=== PATIENT | male | born 1955 | race Caucasian/White ===

== ENCOUNTER 2024-09-21 16:42 | Emergency (ER) | payer MEDICARE, SELFPAY ==
[2024-09-21 16:44] VITALS: BP 118/83; PULSE 62; RESP 24; TEMP 36.8; O2SAT 94
--- NOTE | 2024-09-21 16:47 | EKG_ITS ---
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
[2024-09-21 16:49] VITALS: PULSE 60; RESP 20; O2SAT 98; BMI 26.6
--- NOTE | 2024-09-21 17:05 | XR_ITS ---
Examination: AP chest single view Technique one AP portable upright chest single view Date and time: September 21, 2024 1710 hours INDICATIONS: Shortness of breath and weakness beginning today FINDINGS: Normal heart size Opacity left base and right base consistent with pneumonia No pulmonary edema Prominent osteopenia IMPRESSION: Bibasilar pneumonia
--- NOTE | 2024-09-21 17:07 | PD.EDSOB ---
ED SOB =RME/HPI General Chief Complaint: Shortness of Breath/Dyspnea Stated Complaint: SOB Time Seen by Provider: 09/21/24 16:57 Arrival date/time: 09/21/24 16:42 RME / HPI RME / HPI Narrative: 68-year-old male patient with significant history of hypertension, COPD, was sent to us by PCP for shortness of breath. Apparently patient was admitted into adult more than 2 months ago stated for 4 days, and was sent home on oxygen. Apparently went to PCP today per possible booster for vaccines however it was not given since patient was noted to be hypoxic. According to the patient his oxygen tank is empty. Currently patient is not having symptoms no fever. Only complaint is chronic nonproductive cough. Related Data Previous Rx's ?Medication ?Instructions ?Recorded amoxicillin 875 mg-potassium 1 tab PO BID #14 tabs 09/21/24 clavulanate 125 mg tablet doxycycline hyclate 100 mg capsule 100 mg PO BID #14 caps 09/21/24 Allergies Allergy/AdvReac Type Severity Reaction Status Date / Time No Known Allergies Allergy Verified 09/21/24 16:44 Review of Systems Review of Systems Narrative Review of Systems: Review of system reviewed and within normal limits except mentioned in HPI ED Exam Narrative Physical exam: VITAL SIGNS: Reviewed. GENERAL APPEARANCE: Alert and interactive, follows commands, no acute distress, HEAD AND FACE: Non-traumatic. ENT: PERRL, pink conjunctivitis, eyelid no trauma, Mucous membrane moist. NECK: Supple, nontender, no nuchal rigidity. CHEST: No tenderness, no crepitus, no paradoxical movement, no retractions. LUNGS: Clear, well ventilated, symmetric, no rales, no wheezing, no ronchi, no stridor, good breath sounds bilaterally. HEART: Regular rate, regular rhythm, no murmur, no gallops. ABDOMEN: Soft, positive bowel sounds, nondistended, no guarding, nontender, no rebound, no masses, RECTAL: Deferred. GENITAL: Deferred. NEUROLOGICAL: Gross motor function intact sensory function intact, Appropriate for age. MUSCULOSKELETAL: low back nontender, full range of motion. EXTREMITIES: Nontender, full range of motion. SKIN: Color pink, dry, no rash, no lacerations, no abrasions, no contusions. LYMPHATICS: Deferred. Course Quality Measures none Orders Category Date Time Status EKG (ED ONLY) *Do not use* NOW Care 09/21/24 16:47 Active EKG (ED ONLY) *Do not use* NOW Care 09/21/24 17:05 Completed EKG (ED Only) Stat Exams 09/21/24 16:47 Draft EKG (ED Only) Stat Exams 09/21/24 17:05 Ordered XR chest 1V Stat Exams 09/21/24 17:05 Completed B-Type Natriuretic Peptide Stat Lab 09/21/24 17:25 Completed Blood Culture (Lab) Stat Lab 09/21/24 17:20 Received C-Reactive Protein Stat Lab 09/21/24 17:25 Completed CBC Stat Lab 09/21/24 17:25 Completed Comprehensive Metabolic Panel Stat Lab 09/21/24 17:25 Completed Lactate (Lactic Acid) Stat Lab 09/21/24 17:25 Completed Partial Thromboplastin Time Stat Lab 09/21/24 17:25 Completed Procalcitonin Stat Lab 09/21/24 17:25 Completed Troponin I Stat Lab 09/21/24 17:25 Completed Amoxicillin/Pot Clav 875 [Augmentin 875] Med 09/21/24 17:59 Once 1 tab PO X1 ONE Dexamethasone Inj [Decadron Inj] Med 09/21/24 17:05 Discontinued 10 mg IM X1 ONE Doxycycline [Vibramycin] Med 09/21/24 17:59 Once 100 mg PO X1 ONE Vital Signs Vital signs: Vital Signs Temperature 98.2 F 09/21/24 16:44 Pulse Rate 62 09/21/24 16:44 Respiratory Rate 24 H 09/21/24 16:44 Blood Pressure 118/83 09/21/24 16:44 Pulse Oximetry (%) 94 L 09/21/24 16:44 Oxygen Delivery Method Room Air 09/21/24 16:44 Shortness of Breath / Dyspnea MDM Narrative MDM Narrative:: 68-year-old male patient with significant history of hypertension, COPD, was sent to us by PCP for shortness of breath. Apparently patient was admitted into adult more than 2 months ago stated for 4 days, and was sent home on oxygen. Apparently went to PCP today per possible booster for vaccines however it was not given since patient was noted to be hypoxic. According to the patient his oxygen tank is empty. Currently patient is not having symptoms no fever. Only complaint is chronic nonproductive cough. EKG as interpreted by me showed sinus rhythm, ventricular rate of 61 bpm, no ST segment ovation depressions. Laboratory workup came back with no leukocytosis, chest x-ray pneumonia otherwise unremarkable. Patient was given Augmentin and doxycycline in the emergency room. He was also given a dose of Decadron. Currently satting 95% on room air and verbalized significant pulmonary symptoms. Patient data External records reviewed:: None Clinical information provided by:: patient Social determinants that could affect healthcare access:: none Patient has the following chronic illnesses:: COPD hypertension How is presenting disease/condition affected by chronic disease/condition?: exacerbated by Evaluation data The following diagnostics were reviewed and interpreted by me:: lab results, radiology exam(s) and EKG tracing(s) Lab and/or radiology exams considered but not ordered:: None Interpretation Summary: She result in [facility] Medications / Prescriptions Medications or Prescriptions considered but not ordered:: 9 Medication administrations:: Medication Administration History Discontinued Medications Amoxicillin/Clavulanate Potassium (Amoxicillin/Pot Clav 875 Tablet) 1 tab PO X1 ONE Stop: 09/21/24 18:00 Dexamethasone Sodium Phosphate (Dexamethasone Sod Phos Inj 10 Mg/Ml Vial) 10 mg IM X1 ONE Stop: 09/21/24 17:06 Last Admin: 09/21/24 17:19 Dose: 10 mg Documented By: GM Doxycycline Hyclate (Doxycycline 100 Mg Tablet) 100 mg PO X1 ONE Stop: 09/21/24 18:00 Doxycycline, Decadron, Augmentin Consultations Consultation(s) initiated? (list below): No Diagnosis Shortness of Breath Differential Diagnosis: acute exacerbation of chronic obstructive airways disease and community acquired pneumonia Most likely diagnosis given after review of the tests above:: Acute exacerbation of COPD, pneumonia Admission Indicated Admission indicated?: not indicated Explain why admission is indicated or not indicated:: None Admission Request Was there a request for admission?: No Disposition Plan Disposition Plan: Discharge Discharge Attestation Discharge Attestation: The patient and all family members were given an opportunity to ask questions and understood the discharge instructions. Discharge instructions specifically effects, indications for sooner follow up or return to the emergency department, and the expected course of current diagnosis. Patient condition: Stable Discharge Plan Plan Patient Disposition: HOME (Self Care) Discharge Disposition comment: Stable Prescriptions/Referrals Prescriptions/Med Rec: New amoxicillin-pot clavulanate 875-125 mg tablet 1 tab PO BID Qty: 14 0RF doxycycline hyclate 100 mg capsule 100 mg PO BID Qty: 14 0RF Referrals: Chika Boo FNP-C [Primary Care Provider] - In 1 week Problem List Clinical Impression: Community acquired pneumonia, Acute exacerbation of chronic obstructive airways disease Patient/Caregiver Discharge Instructions Discharge Activity: activity as tolerated Education Materials: What Is Pneumonia? Additional Instructions: Thank you for the opportunity for serving you today. You are stable for discharged . You are advised to: Follow-up with your PCP in 1 to 2 days Return to ED for worsening of symptoms Increase oral fluids Take medication as prescribed Print Language: Bengali Stand Alone Forms: Marielena Award Info., Patient Portal Info Letter DAVID/RUFINA Supervising Physician DAVID/RUFINA Supervising Physician: MD Lulu
[2024-09-21] MEDS: DEXAMETHASONE SOD PHOS INJ 10 MG/ML VIAL IM (17:19)
[2024-09-21 17:41] LABS: Lactate (Lactic Acid) 1.7 mMol/L (0.4-2.0)
[2024-09-21 17:43] LABS: Basophils # (Auto) 0.1 Thou/mm3 (0.0-0.2); Basophils % (Auto) 1 % (0-2.5); Eosinophils # (Auto) 0.3 Thou/mm3 (0.0-0.5); Eosinophils % (Auto) 3 % (0-10); Hematocrit 42.5 % (41.0-53.0); Hemoglobin 14.4 g/dL (13.5-16.0); Immature Granulocytes % (Auto) 1 % (0-0); Immature Granulocytes Auto 0.07 Thou/mm3 (0.00-0.00); Lymphocytes # (Auto) 1.9 Thou/mm3 (1.0-4.8); Lymphocytes % (Auto) 21 % (10-50); Mean Corpuscular HGB Conc 33.9 g/dl (31.0-37.0); Mean Corpuscular Hemoglobin 33.8 pg (25.0-35.0); Mean Corpuscular Volume 100 fL (80-100); Monocytes # (Auto) 0.6 Thou/mm3 (0.0-0.8); Monocytes % (Auto) 7 % (0-12); Neutrophils # (Auto) 6.2 Thou/mm3 (1.8-7.7); Neutrophils % (Auto) 68 % (37-80); Nucleated Red Blood Cell % 0 /100 WBC (0); Platelet Count 289 Thou/mm3 (140-440); RDW Standard Deviation 48.6 fL (35.1-43.9); Red Blood Count 4.26 Miln/mm3 (4.50-5.90); White Blood Count 9.1 Thou/mm3 (3.8-10.6)
[2024-09-21 17:59] VITALS: BP 126/79; PULSE 62; RESP 20; TEMP 36.7; O2SAT 93
[2024-09-21 17:59] LABS: Partial Thromboplastin Time 40.7 Seconds (22.0-36.0)
[2024-09-21 18:05] LABS: B-Type Natriuretic Peptide 130 pg/mL (0-100)
[2024-09-21 18:18] LABS: Alanine Aminotransferase 11 U/L (10-49); Albumin, Serum 3.9 gm/dL (3.4-4.8); Albumin/Globulin Ratio 1.7 (1.2-2.2); Alkaline Phosphatase 97 U/L (46-116); Anion Gap 7 (7-16); BUN/Creatinine Ratio 6 Ratio (12-20); Bilirubin,Total 0.4 mg/dL (0.3-1.2); Blood Urea Nitrogen 9 mg/dL (9-23); C-Reactive Protein < 0.5 mg/dL (0.0-0.9); Calcium 8.7 mg/dL (8.3-10.6); Calcium (Corrected) 8.8 mg/dL (8.5-10.1); Carbon Dioxide 24.2 mMol/L (20.0-31.0); Chloride 115 mMol/L (98-107); Creatinine (Component) 1.4 mg/dL (0.6-1.3); Estimated Creatinine Clearance 48.5 mL/min (>60); Globulin 2.3 gm/dL (2.3-3.5); Glucose 106 mg/dL (74-106); Osmolality,Calculated 289 (275-295); Potassium 4.2 mMol/L (3.4-5.1); Procalcitonin < 0.04 ng/ml (0.0-0.49); Sodium 146 mMol/L (136-145); Total Protein 6.2 gm/dL (5.7-8.2); Troponin I < 0.020 ng/mL (0.0-0.045); eGFR 55 See Note
[2024-09-21] MEDS: DOXYCYCLINE 100 MG TABLET PO (18:23)
[2024-09-21 18:24] VITALS: BP 137/83; PULSE 75; RESP 18; TEMP 36.8; O2SAT 94
[2024-09-21] MEDS: AMOXICILLIN/POT CLAV 875 TABLET 1 TAB PO (18:24)
== END 2024-09-21 18:34 | disposition home or self-care (01) ==
PROVIDERS: Nurse Practitioner Family; Emergency Provider Emergency Medicine; PCP Nurse Practitioner Family
DX: J44.1 Chronic obstructive pulmonary disease with (acute) exacerbation (principal); J44.0 Chronic obstructive pulmonary disease with (acute) lower respiratory infection; J18.9 Pneumonia, unspecified organism; I10 Essential (primary) hypertension
CPT/HCPCS: 36415; 71045; 80053; 83605; 83880; 84145; 84484; 85025; 85730; 86140; 87040; 93005; 96372; 99283; J1100; A9270

== ENCOUNTER → 2024-11-01 | Outpatient (CLI) | payer MEDICARE, SELFPAY ==
--- NOTE | 2024-11-01 14:26 | XR_ITS ---
Examination: Cervical spine 3 views Technique one AP lateral coned AP odontoid cervical spine 3 views Date and time: November 01, 2024 1047 hours INDICATIONS: Patient fell 3 months ago with injury to the neck, neck pain. FINDINGS: Satisfactory alignment cervical vertebral bodies. No cervical fracture. Advanced degenerative disc disease C5-C6, C6-C7 Intact odontoid IMPRESSION: No cervical fracture Incidental note heavy soft tissue carotid vascular calcification, consider correlation with carotid Doppler sonography follow-up
--- NOTE | 2024-11-01 14:26 | XR_ITS ---
Examination: Thoracic spine 3 views TECHNIQUE: AP, lateral, coned lateral upper dorsal spine 3 views Date and time: November 01, 2024 1451 hours INDICATIONS: Upper back pain after falling 3 months ago. FINDINGS: Prominent osteopenia. No acute thoracic fracture. Mild thoracic spondylosis IMPRESSION: No acute thoracic fracture
--- NOTE | 2024-11-01 14:26 | XR_ITS ---
Examination: Lumbar spine, 5 views Technique: Lumbar spine AP, lateral, coned lateral lower lumbar spine, bilateral obliques 5 views Exam date and time: November 01, 2024 1445 hours INDICATIONS: Patient fell 3 months ago with injury to lower back, lower back pain. FINDINGS: Bilateral renal calculi in the 4 to 6 mm range Severe osteopenia Diffuse facet arthropathy. Moderate chronic osteoporotic compression L1 No acute fracture Diffuse moderate lumbar degenerative disc disease IMPRESSION: Moderate chronic osteoporotic compression L1 Bilateral renal calculi
== END | disposition home or self-care (01) ==
LOC: CDIM 14:20
PROVIDERS: PCP Nurse Practitioner Family; Referring Provider Nurse Practitioner Family; Visit Provider Nurse Practitioner Family
DX: I65.29 Occlusion and stenosis of unspecified carotid artery (principal); N20.0 Calculus of kidney; M80.08XA Age-related osteoporosis with current pathological fracture, vertebra(e), initial encounter for fracture
CPT/HCPCS: 72040; 72072; 72110

== ENCOUNTER → 2024-12-06 | Outpatient (CLI) | payer MEDICARE, SELFPAY ==
--- NOTE | 2024-12-06 14:30 | XR_ITS ---
Examination: CT chest, without intravenous contrast. Sagittal and coronal 2-D reconstructions. Exam date and time: December 06 thousand 25, 1510 hours INDICATIONS: Difficulty breathing 2 months, diagnosis COPD CTDI:vol (mGy) 12.2 DLP: (mGycm) 476 Technique: Multiple 3.0 mm axial sections of the chest to been obtained. Bone and lung density settings are obtained. Sagittal and coronal 2-D reconstructions have been obtained. Low dose protocols were performed. One or more of the following dose reduction techniques were used; automated exposure control, adjustment of the mA and/or KV according to patient size, use of iterative reconstruction technique. Findings: Mediolateral dimension ascending thoracic aorta 4.4 cm Mean pulmonary artery segment measures 38 mm Significant calcification left main left circumflex coronary arteries Mild enlargement cardiac contour. No paratracheal tracheobronchial or bronchopulmonary adenopathy COPD with areas of airspace destruction 3 mm pulmonary nodule right lower lobe axial image 150 Small right pleural effusion with atelectasis in the right lower lobe Mild pleural thickening along the lower right lateral thoracic wall adjacent to old appearing rib fractures No visualized liver or splenic lesion No pancreatic mass Moderate osteopenia Impression: Aneurysmal dilatation ascending thoracic aorta, transverse dimension 4.4 cm Pulmonary artery hypertension. COPD. 3 mm pulmonary nodule right lower lobe, recommend 6 month follow-up continue CT chest without contrast
== END | disposition home or self-care (01) ==
PROVIDERS: PCP Nurse Practitioner Family; Referring Provider Nurse Practitioner Family; Visit Provider Nurse Practitioner Family
DX: I71.21 Aneurysm of the ascending aorta, without rupture (principal); I27.21 Secondary pulmonary arterial hypertension; J44.9 Chronic obstructive pulmonary disease, unspecified; R91.1 Solitary pulmonary nodule
CPT/HCPCS: 71250